=== PATIENT | female | born 1970 | race Caucasian/White ===

== ENCOUNTER → 2017-01-13 | Outpatient (CLI) | payer BC, OTHER ==
--- NOTE | 2017-01-13 15:56 | Diagnostic Imaging Report ---
EXAMINATION: Transabdominal and transvaginal pelvic ultrasound. INDICATION: Vaginal bleeding. FINDINGS: The uterus is retroflexed and is 7 x 5.8 x 4.9 cm. The endometrial stripe is 3 mm in thickness. The myometrium is slightly heterogenous with some tiny cystic and numerous hyperechoic foci. It appears also somewhat globular. This could relate to adenomyosis. No discrete mass. There is a simple appearing cyst measuring 2 x 1.4 x 1.5 cm in the left adnexa which could be arising from the ovary although this cannot be confirmed as adjacent ovarian tissue is not seen. The right ovary is also not seen, probably obscured by bowel gas. The urinary bladder appears unremarkable. IMPRESSION: 1. Findings in the uterus may relate to adenomyosis. No focal mass. 2. Nonspecific simple appearing 2 cm left adnexal cyst. The ovaries are not seen. Dictated by: Dictated on workstation # [id number]
== END ==
LOC: RAD 11:03
PROVIDERS: ATTEND Nurse Practitioner
DX: Z12.31 Encounter for screening mammogram for malignant neoplasm of breast (principal); N83.202 Unspecified ovarian cyst, left side; N92.4 Excessive bleeding in the premenopausal period
CPT/HCPCS: 76830; 76856; 77067

== ENCOUNTER → 2018-01-25 | Outpatient (CLI) | payer BC ==
--- NOTE | 2018-01-25 15:36 | Diagnostic Imaging Report ---
PROCEDURE: US Non-ob pelvis comp/trans. TECHNIQUE: Multiple realtime grayscale images were obtained of the pelvis in various projections endovaginally. Transabdominal imaging was also performed. INDICATION: Pelvic fullness. FINDINGS: The uterus measures 7.6 x 5.6 x 4.1 cm. The endometrium is 4 mm in thickness. No myometrial mass is detected. The ovaries are not visualized. No adnexal mass or free fluid is seen. IMPRESSION: Nonvisualized ovaries. The study is otherwise unremarkable. Dictated by: Dictated on workstation # [id number]
--- NOTE | 2018-01-26 19:36 | Diagnostic Imaging Report ---
Digital mammogram bilateral screening with 3 D tomosynthesis. This study was compared to the prior exams of 01/13/2017 and 01/27/2011. At this time, there are no current complaints. The current study was also evaluated with a Computer Aided Detection (CAD) system. FINDINGS: The fibroglandular tissue in both breasts is heterogeneously dense. This does limit the sensitivity of this exam. Overall, there does not appear to have been any significant change when compared to the prior study. No primary or secondary sign of malignancy is noted. IMPRESSION: There is no radiographic evidence for malignancy. ACR BI-RADS Category 1: Negative. Result letter will be mailed to the patient. Note: At least 10% of breast cancer is not imaged by mammography. Dictated by: Dictated on workstation # [id number]
== END ==
LOC: RAD 13:56
PROVIDERS: ATTEND Nurse Practitioner
DX: Z12.31 Encounter for screening mammogram for malignant neoplasm of breast (principal); R19.00 Intra-abdominal and pelvic swelling, mass and lump, unspecified site; N91.2 Amenorrhea, unspecified
CPT/HCPCS: 76830; 76856; 77067